=== PATIENT | male | born 1955 | race Caucasian/White ===

== ENCOUNTER 2018-11-16 11:24 | Inpatient (IN) | payer OTHER ==
[~2018-11-16] VITALS: Ht 180.3 cm; Wt 99.3 kg
[~2018-11-16 11:24] MED LIST: FISHOIL OR; FLOMAX PO; PERCOCET 5-3251 EACH PO; ZOFRAN ODT4 MG PO
[2018-11-16 11:35] VITALS: BP 138/70
[2018-11-16 12:11] LABS: ABSOLUTE NEUTROPHILS 1.8 thou/uL (1.4-8.2); EOSINOPHILS 4.5 % (0.0-3.0); HEMOGLOBIN 11.1 gm/dL (14.0-18.0); LYMPHOCYTES 48.5 % (24.0-44.0); MCH 28.4 pg (26.0-34.0); MCHC 32.6 g/dL (28.0-37.0); MCV 87.2 fL (80.0-100.0); MONOCYTES 7.4 % (1.0-8.0); POLYS 38.6 % (36.0-66.0); RDW 17.3 % (10.5-14.5); WBC 4.7 thou/uL (4.0-11.0)
[2018-11-16 12:20] LABS: URINE BILIRUBIN NEGATIVE (Negative); URINE BLOOD NEGATIVE (Negative); URINE CLARITY CLEAR; URINE COLOR YELLOW; URINE GLUCOSE-RANDOM* 3+ (Negative); URINE KETONES NEGATIVE (Negative); URINE LEUKOCYTES-REFLEX NEGATIVE (Negative); URINE NITRITE-REFLEX NEGATIVE (Negative); URINE PROTEIN (DIPSTICK) NEGATIVE (Negative); URINE UROBILINOGEN 0.2 E.U./dl (0.2-1.0)
[2018-11-16 12:33] LABS: ALBUMIN 3.7 g/dL (3.4-5.0); CREATININE 1.3 mg/dL (0.7-1.3); MAGNESIUM 1.8 mg/dL (1.8-2.4); POTASSIUM 4.3 mmol/L (3.5-5.1); TOTAL BILIRUBIN 0.3 mg/dL (<0.1-1.0); TOTAL PROTEIN 6.5 g/dL (6.4-8.2)
[2018-11-16 12:38] LABS: CALCIUM 14.2 mg/dL (8.5-10.1)
[2018-11-16 12:50] LABS: PLATELET COUNT 73 thou/uL (150-400)
--- NOTE | 2018-11-16 12:56 | EKG ---
[address] [address] ELECTROCARDIOGRAM REPORT Name: MASON ESCOBAR LATESHA Room #: [facility]..#: [id number] Admission: Attend Phys: Discharge: Date of : 57 Report #: [id number] THIS REPORT FOR: //name// [facility] ED Test Date: 2018-11-16 Test Time: 12:05:39 Pat Name: MASON ESCOBAR Department: Room: Gender: Welcome Wagon Host/Hostess: : 1955 Requested By: Blayne Hilton Order Number: [id number] MD: Kris Delgado Measurements Intervals [place] Rate: 86 P: 1 RI: 175 QRS: -3 QRSD: 94 T: 10 QT: 333 QTc: 399 Interpretive Statements Sinus rhythm Compared to ECG 10/26/2010 08:24:10 No significant changes Electronically Signed On 11-16-2018 12:55:34 CDT by Kris Delgado [email or web address] <ELECTRONICALLY SIGNED> By: Kris Delgado MD 11/16/18 1255 1205 1205 Kris Delgado MD /KAYCEE
[2018-11-16 14:00] LABS: CREATININE 1.1 mg/dL (0.7-1.3); PHOSPHORUS 2.5 mg/dL (2.5-4.9)
[2018-11-16 14:01] LABS: CALCIUM 12.7 mg/dL (8.5-10.1)
[2018-11-16 15:02] VITALS: BP 113/65
[2018-11-16 15:11] VITALS: BP 122/72
[2018-11-16 15:31] VITALS: BP 121/70
--- NOTE | 2018-11-16 18:23 | NUR ---
Patent admit to unit at 1545. A/O X4. DENIES ANY PAIN. AMBULATED IN ROOM. GENERLIZED WEAKNESS. WILL KEEP MONITOR.
[2018-11-16 19:43] VITALS: BP 130/65
--- NOTE | 2018-11-16 23:23 | NUR ---
PATIENTS CARES WERE ASSUMED AT SHIFT CHANGE. PATIENT WAS ASSESSED AND MEDS WERE PASSED. PATIENTS FAMILY AT THE BEDSIDE DURING REPORT. ALSO DOING FACE TIME WITH ONE OF THE SONS. ROOM WAS SET UP FOR THE TO SPEND THE NIGHT. HOURLY ROUNDING WAS DONE. THE BED IS IN A LOW AND OCKED POSITION.
[2018-11-17 03:55] VITALS: BP 115/52
[2018-11-17 06:16] LABS: PHOSPHORUS 1.4 mg/dL (2.5-4.9)
[2018-11-17 06:34] LABS: CALCIUM 7.4 mg/dL (8.5-10.1)
[2018-11-17 06:35] LABS: POTASSIUM 2.9 mmol/L (3.5-5.1)
[2018-11-17 08:00] VITALS: BP 120/54
--- NOTE | 2018-11-17 13:59 | NUR ---
ASSESSMENT: CM REVIEWED CHART AND MET WITH PT AT THE BEDSIDE. PTS IS AT THE BESIDE WELL CHILDREN. PT WAS ADMITTED FOR HYPERCALCEMIA. PT REPORTS THAT HE LIVES AT HOME WITH HIS AND CHILDREN IN A HOUSE. PT REPORTS HAVING NO STEPS TO ENTER. PT IS FULLY INDEPENDENT WITH ADLS AND AMBULATION. PT HAS A SHOWER CHAIR. PT HAS NOT HAD HH IN THE PAST OR BEEN TO A SNF. CM DISCUSSED ROLE. PT REPORTS HAVING NO INSURANCE. CM DISCUSSED REFERRAL WILL BE SENT TO [facility]. PT REPORTS HAVING NO NEEDS ONCE MEDICALLY STABLE TO DISCHARGE.
--- NOTE | 2018-11-17 15:19 | HC ---
[facility] [place] [address] CONSULTATION Name: MASON ESCOBAR Room #: 349-I [facility] IN ..#: [id number] Admission: 11/16/18 Attend Phys: Ravi Hernandez Discharge: Date of : 57 Report #: [id number] THIS REPORT FOR: //name// CC: Ravi Haile DATE OF SERVICE: 11/17/2018 CONSULTING PHYSICIAN: Dr. Hernandez. REASON FOR CONSULTATION: Hypercalcemia. HISTORY OF PRESENT ILLNESS: This is a 62-year-old male patient who presented yesterday following weeks of progressive weakness, tiredness, malaise, and poor concentration. On arrival to the ER, the patient was found to have severe hypercalcemia with his levels exceeding 40 mg/dL. He was subsequently admitted for further management and received aggressive IV fluid resuscitation as well as zoledronic acid. The patient notes that his appetite has declined over the past month and that he had lost more than 15 pounds unintentionally. However, he denies active GI symptoms of nausea, vomiting, constipation. He does recognize that his focus has been impaired with a foggy mentation over the past few weeks. Interestingly, the patient has had several episodes of kidney stones over his life, the last being a few years ago. He has not experienced pancreatitis in the past. The patient is now not aware of a prior history of calcium disorders or thyroid disorders. The patient has never been a smoker. REVIEW OF SYSTEMS: CONSTITUTIONAL: Fatigue, tiredness, weight loss, poor appetite, but no fever or chills. HEENT: Negative for sore throat, sinus pain, congestion, ear aches, or ear discharge. PULMONARY: Negative for shortness of breath, cough, or hemoptysis. CARDIAC: Negative for chest pain, palpitations, syncope, or presyncope. GASTROINTESTINAL: Negative for abdominal pain, nausea, vomiting, or changes in bowel movement frequency. NEUROLOGY: Negative for loss of consciousness, headaches, or seizure activity. SKIN: Negative for rash, ulceration, discoloration, or other major changes. PSYCHIATRY: Noted for somewhat declining mood quality, but not hallucinations or delusions. Otherwise, his review of systems is noncontributory other than those mentioned in HPI. PAST MEDICAL HISTORY: The patient notes that he was diagnosed in the past with diabetes mellitus and hypertension, but that he managed to get off medicines completely for both. [address] [address] CONSULTATION Name: MASON ESCOBAR LATESHA Room #: 349-I [facility] IN .R.#: [id number] Admission: 11/16/18 Attend Phys: Ravi Hernandez Discharge: Date of : 57 Report #: [id number] CURRENT MEDICATIONS: None. ALLERGIES: No known drug allergies. FAMILY HISTORY: Noncontributory. SOCIAL HISTORY: The patient is , has 4 children, has a part-time job. Denies smoking since age of 22 years, hardly drinks alcohol. PHYSICAL EXAMINATION: GENERAL: Pleasant, male patient, who appears somnolent, lethargic, but not in apparent distress. VITAL SIGNS: Blood pressure is 115/52 mmHg, heart rate is 108 beats per minute, respirations 20 per minute, temperature 37.5 degrees. CONSTITUTIONAL: He appears lethargic, somnolent, and actually dozed off a few times while we were speaking, but not in apparent distress. HEENT: Anicteric sclerae. Intact extraocular motions. NEUROLOGIC: Intact extraocular motions. NECK: Supple, without JVD, carotid bruits, or lymphadenopathy. I do not appreciate thyromegaly. CHEST: Clear to auscultation with good air entry bilaterally. No wheeze or crackles noted. There is no percussion noted over both lung lepe. HEART: Regular rate and rhythm without murmurs or gallops. ABDOMEN: Soft and lax, but with noted epigastric tenderness without guarding on deep palpation. No organomegaly. Sluggish bowel sounds. EXTREMITIES: Lower extremity exam, trace ankle edema bilaterally. Pedal pulses are appreciated. No skin breaks, ulcerations, or other deformities. NEUROLOGIC: Awake, arousable, somnolent, dozing off during our interview. The rest of his examination is nonfocal. PSYCHIATRIC: Seems to have a normal mood and normal affect. SKIN: No discoloration, ulceration, deformities or other gross abnormalities. LABORATORY DATA: Sodium 144, potassium 2.9, it was 4.3 on arrival, chloride 113, CO2 of 20, anion gap 11, BUN 14, creatinine 1.0, glucose 260, AST 15, lipase 405, calcium on arrival was 14.2 mg/dL. Total bilirubin 0.3, magnesium 1.8, alkaline phosphatase 268, ALT 35, total protein 6.5, albumin 3.7, GFR on arrival was 56. Calcium today is 7.4, phosphorus 1.4, magnesium 1.8, alkaline phosphatase 268, albumin 2.0. GFR now corrected to 76, free T4 1.1. White blood count 4.7, hemoglobin 11.1, hematocrit 34.0, platelets 73, calcium noted. TSH 0.014. ASSESSMENT AND PLAN: 1. Hypercalcemia. As noted above, the patient presented with an outlook of severe hypercalcemia that has been symptomatic over the past few weeks. This presented in the context of poor appetite and weight loss as well. [facility] [place] [address] CONSULTATION Name: MASON ESCOBAR Room #: 349-I ADM IN M.R.#: [id number] Admission: 11/16/18 Attend Phys: Ravi Hernandez Discharge: Date of : 57 Report #: [id number] patient's initial management was excellent in that he was aggressively hydrated, diuresed, and received zoledronic acid. The drop in his calcium levels overnight has been dramatic going from 14.2-7.4. While 7.4 mg/dL appears low, it is probably within normal limits when corrected for hypoalbuminemia. Given this dramatic and rapid drop in calcium in less than 24 hours, I would credit IV fluid resuscitation, mostly with this decline as zoledronic acid will typically take 2-3 days to manifest its activity. In this context, hypercalcemia of malignancy is the most pressing thought. Without a doubt, we still have to consider the possibility of hyperparathyroidism and a parathyroid level was ordered and is still pending. A neck ultrasound was done in search of a parathyroid adenoma and was unremarkable. Given the possibility of malignancy, I would order a PTH-related peptide and would highly encourage a low threshold for malignancy screener. In the immediate setting, I am certainly interested in finding out more about his liver in the setting of thrombocytopenia, hypoalbuminemia, and elevated alkaline phosphatase. In order to initiate this consideration, I might pursue a right upper quadrant ultrasound after I consult with Dr. Hernandez. In the immediate setting, IV fluids could certainly be toned down and the rest of the management will highly dependent on the outcome of his pending workup. 2. Hyperthyroidism. As noted above, the patient had a suppressed TSH, but with a perfectly normal free T4. This is consistent with an outlook of sick euthyroid syndrome, which further supports this outlook of chronic generalized illness over the past several weeks. No immediate action is warranted at this point in time. 3. Type 2 diabetes mellitus. The patient reports a history of type 2 diabetes mellitus that he perceives as diet control. However, he has not received any form of routine medical care and I would like to assess his diabetic state further with a hemoglobin A1c. 4. Hypokalemia. The patient's potassium dropped overnight with necessarily IV fluid resuscitation and diuresis and is being replaced now. I will request a potassium later today to ensure adequate correction. I certainly appreciate this consultation by Dr. Hernandez. <ELECTRONICALLY SIGNED> By: Amira Flores MD 11/17/18 1519 1142 1513 Amira Flores MD /nt
--- NOTE | 2018-11-17 15:31 | NUR ---
Assumed care approx. 0700 this AM. Patient noted to be much more weaker and somnolent than before. Patient made a fall risk later in the shift. Patient's updated at bedside with questions and concerns addressed. Patient's agrees that he isn't safe to be up on his own at this time as his current mentation, slow response, and fatigue is not the norm. Ultrasound of neck completed this AM with no significant findings. Ultrasound of abdomen scheduled for tomorrow morning. Patient will be NPO after midnight. Not much progress toward plan of care at this time.
[2018-11-17 15:40] VITALS: BP 109/58
[2018-11-17 17:35] LABS: CREATININE 1.6 mg/dL (0.7-1.3)
[2018-11-17 17:37] LABS: CALCIUM 10.7 mg/dL (8.5-10.1); POTASSIUM 3.9 mmol/L (3.5-5.1)
[2018-11-17 20:15] VITALS: BP 97/54
--- NOTE | 2018-11-18 02:37 | NUR ---
patient is alert and oriented. patient has hyperthyroidism. patient is nsr on tele. patients lbm was the 3rd. patient is achs. patient has been npo sense midnight for us today. patient was on room air. patient has had a low temp wcm. patient denies pain. patient is resting comfortably in bed. wcm. patient is progressing to goals.
[2018-11-18 03:26] VITALS: BP 100/58
[2018-11-18 04:24] LABS: ALBUMIN 2.8 g/dL (3.4-5.0); CALCIUM 9.3 mg/dL (8.5-10.1); CREATININE 1.5 mg/dL (0.7-1.3); POTASSIUM 3.5 mmol/L (3.5-5.1)
[2018-11-18 07:34] VITALS: BP 93/55
[2018-11-18] MEDS ORDERED: FLAGYL500 M1 PO (10:02)
[2018-11-18] MEDS ORDERED: LEVAQUIN 500 M500 M2 PO (10:02)
[2018-11-18 10:14] VITALS: BP 93/55
[2018-11-18 15:00] VITALS: BP 109/58
--- NOTE | 2018-11-18 17:16 | NUR ---
ASSUMED CARE OF PT AT 0700. PT AOX4 IN NO ACUTE DISTRESS. DISCHARGE PLANNING ON HOLD. PT NOW FEBRILE. TMAX 103.1. INFECTIOUS DISEASE CONSULTED - SEEING PATIENT NOW. CT CHEST RESULTS PENDING. GAIT WEAK. REQUIRING WALKER TO AMBULATE. WILL CONT TO MONITOR.
[2018-11-18 19:00] VITALS: BP 100/58
[2018-11-18 23:16] VITALS: BP 102/57
[2018-11-19 04:00] VITALS: BP 110/61
[2018-11-19 04:25] LABS: HEMATOCRIT 26.9 % (42.0-52.0); MCH 29.2 pg (26.0-34.0); MCHC 33.6 g/dL (28.0-37.0); MCV 86.8 fL (80.0-100.0); PLATELET COUNT 60 thou/uL (150-400); RDW 17.6 % (10.5-14.5); WBC 2.3 thou/uL (4.0-11.0)
[2018-11-19 04:47] LABS: ALBUMIN 2.6 g/dL (3.4-5.0); CALCIUM 8.6 mg/dL (8.5-10.1); CREATININE 1.4 mg/dL (0.7-1.3); POTASSIUM 3.2 mmol/L (3.5-5.1); TOTAL BILIRUBIN 0.7 mg/dL (<0.1-1.0); TOTAL PROTEIN 5.4 g/dL (6.4-8.2)
--- NOTE | 2018-11-19 05:24 | HC ---
[facility] [place] [address] CONSULTATION Name: MASON ESCOBAR Room #: 349-I ADM IN .R.#: [id number] Admission: 11/16/18 Attend Phys: Ravi Hernandez Discharge: Date of : 57 Report #: [id number] THIS REPORT FOR: //name// CC: Ravi Haile DATE OF SERVICE: 11/18/2018 ATTENDING PHYSICIAN: Dr. Hernandez. REASON FOR EVALUATION: Febrile illness. HISTORY OF PRESENT ILLNESS: Chart reviewed, the patient examined. This is a 62-year-old man with history of diabetes mellitus, renal lithiasis, who was admitted at the request of his primary care physician. He had presented there with a fairly profound weakness, unsteady gait and increased thirst. Screening lab suggested markedly elevated calcium of 14, normal albumin. He was asked to return to the Emergency Room where he subsequently admitted. He was given fluids and diuresis. In addition to that, he has had extended period where he has lost weight and becoming increasingly dyspneic with minimal activity. On evaluation, urinalysis was unremarkable for 3+ glucose described above the calcium was elevated at 14.2. Did have a lipase borderline elevated at 405, glucose of 297. CBC: White count of 4.7. CT abdomen and pelvis showed no acute intraabdominal or pelvic process. TSH was low at 0.014, parathyroid hormones pending. Thyroid ultrasound was otherwise unremarkable as well roughly 24-36 hours since his admission, had developed fevers which has been high-grade. On questioning, he denies any particular awareness of fevers prior to his admission, not have particularly specific exposure history, although he does have animals. He does work in the yard. No dietary indiscretion. No recent travel. Empirically placed on levofloxacin. ALLERGIES: None known. PHYSICAL EXAMINATION: GENERAL: Appears somewhat of a flat affect. He is little bit slow to respond, somewhat chronically ill-appearing and undernourished. VITAL SIGNS: Temperature 103.1, pulse 108, respirations 18, blood pressure 109/58. SKIN: Warm, dry, no rashes. HEENT: Normocephalic. Extraocular muscles are intact. NECK: Supple. LUNGS: Generally clear to auscultation. HEART: Regular, tachycardic. I do not appreciate a murmur. ABDOMEN: Mild discomfort in the periumbilical area. There are no overt peritoneal signs. EXTREMITIES: Distal lower extremities are otherwise unremarkable. [facility] [address] [place] [address] CONSULTATION Name: MASON ESCOBAR Room #: 349-I ADM IN ..#: [id number] Admission: 11/16/18 Attend Phys: Ravi Hernandez Discharge: Date of : 57 Report #: [id number] GENITOURINARY: Deferred. RECTAL: Deferred. LABORATORY DATA: CT of the chest, there is no adenopathy, 4 mm right middle lobe nodule. Abdominal ultrasound showed gallbladder wall and borderline prominence, some probe tenderness over the gallbladder. No findings of cholecystitis. Blood cultures collected on 11/17/2018 are sterile thus far. Initial electrolytes, sodium 136, potassium 4.3, chloride 99, bicarbonate is 30, anion gap of 7, BUN and creatinine 18 and 1.3, total bilirubin of 0.3, calcium 14.2, albumin 3.7, total protein 6.5. CBC: White count of 4.7, H and H 11.1 and 34.0, platelets of 73. ASSESSMENT AND PLAN: Noted some degree of fever prior to 48-hour mariia. Blood cultures are sterile thus far. He has been started empirically on antimicrobials. I think it is reasonable to put him on doxycycline as well. The hypercalcemia and fevers are either due endocrinopathy or perhaps malignancy. We will check some viral studies and there are no focal site to suggest a pyogenic cause of infection, may need to do some serology and see how he does over the course of next 24-48 hours. Clearly, this is not something that is going to resolve hypercalcemia on its own. Discussed in detail with the patient. <ELECTRONICALLY SIGNED> By: Cl Parikh MD 11/19/18 0524 1732 [id number] Cl Parikh MD /nt
[2018-11-19 05:59] LABS: ABSOLUTE NEUTROPHILS 1.3 thou/uL (1.4-8.2); PLATELET ESTIMATE DECREASED
[2018-11-19 06:00] LABS: ANISOCYTOSIS 1+; LARGE PLATELETS FEW
--- NOTE | 2018-11-19 06:26 | NUR ---
pt has had fever tonight. T max was 101.3, tylenol effecitve for control of fever. continues to feel weak and malaise. he is wanting to know where his source of infection is at. resting quietly tonight. careplan reviewed.
[2018-11-19 07:52] VITALS: BP 103/60
[2018-11-19 10:06] LABS: % SATURATION 23 % (20-39); IRON 51 ug/dL (65-175); TIBC 223 ug/dL (250-450)
[2018-11-19 15:50] LABS: OBSERVED RETIC COUNT 0.88 % (0.6-2.6)
[2018-11-19 16:01] VITALS: BP 107/55
--- NOTE | 2018-11-19 18:40 | NUR ---
PT UP TO BATHROOM AND WALKED AROUND THE UNIT WITH WALKER. PT STATES HE FEELS BETTER THAN YESTERDAY. VSS ALL DAY. PIV CHANGED D/T LEAKING.
[2018-11-19 19:07] VITALS: BP 109/53
[2018-11-20 03:20] VITALS: BP 112/50
[2018-11-20 05:12] LABS: HEMATOCRIT 25.4 % (42.0-52.0); HEMOGLOBIN 8.6 gm/dL (14.0-18.0); MCH 29.6 pg (26.0-34.0); MCHC 33.9 g/dL (28.0-37.0); MCV 87.3 fL (80.0-100.0); PLATELET COUNT 58 thou/uL (150-400); RBC 2.91 mil/uL (4.50-6.00); RDW 17.2 % (10.5-14.5)
[2018-11-20 05:32] LABS: ALBUMIN 2.5 g/dL (3.4-5.0); CALCIUM 8.3 mg/dL (8.5-10.1); CREATININE 1.2 mg/dL (0.7-1.3); TOTAL BILIRUBIN 0.6 mg/dL (<0.1-1.0); TOTAL PROTEIN 5.3 g/dL (6.4-8.2)
[2018-11-20 07:50] VITALS: BP 123/59
[2018-11-20 08:27] LABS: APTT 25.9 Seconds (24.5-32.8); PROTIME 10.9 Seconds (9.3-11.4)
[2018-11-20 08:46] LABS: ABSOLUTE NEUTROPHILS 0.8 thou/uL (1.4-8.2); ANISOCYTOSIS 1+; HYPOCHROMASIA SLIGHT; PLATELET ESTIMATE DECREASED
[2018-11-20] MEDS ORDERED: DOXYCYCLINE 10100 MG PO (09:16)
--- NOTE | 2018-11-20 09:25 | NUR ---
PT TO IR FOR BONE MARROW BIOPSY AND ASPIRATION.
[2018-11-20 13:46] LABS: KAPPA FREE LIGHT CHAINS 125.7 mg/L (3.3-19.4); KAPPA/LAMBDA RATIO 46.56 (0.26-1.65); LAMBDA FREE LIGHT CHAINS 2.7 mg/L (5.7-26.3)
--- NOTE | 2018-11-20 13:53 | NUR ---
ON-GOING ASSESSMENT: CM SPOKE WITH ATTENDING. PLANS ARE FOR PATIENT TO LIKELY DISCHARGE HOME AFTER BONE MARROW BIOPSY TODAY. PT HAS NO INSURANCE. CM ALREADY PREVIOUSLY GAVE PT SAFETY NET CLINIC RESOURCES/FIND A PHYSICIAN FORM. REFERRAL HAS ALSO BEEN SENT TO [facility] AND CM PROVIDED PATIENTS WITH [facility] CONTACT #.
[2018-11-20 15:35] VITALS: BP 111/66
[2018-11-20 17:07] LABS: HAPTOGLOBIN 197 mg/dL (34-200); IgA 13 mg/dL (61-437); IgG 159 mg/dL (700-1600); IgM 7 mg/dL (20-172)
[2018-11-20 17:07] LABS: GLOBULIN TOTAL 2.2 g/dL (2.2-3.9); M-SPIKE Not Observed g/dL (Not Observed)
[2018-11-20 17:13] VITALS: BP 93/55
[2018-11-21 11:07] LABS: HEMATOLOGY COMMENTS Note: (()); HEMOGLOBIN 9.1 g/dL (13.0-17.7)
[2018-11-24 13:23] LABS: T-SPOT.TB Negative
[2018-11-25 22:06] LABS: ADENOVIRUS Negative (Negative); INFLUENZA A Negative (Negative); INFLUENZA B Negative (Negative); METAPNEUMOVIRUS Negative (Negative); PARAINFLUENZA 1 Negative (Negative); PARAINFLUENZA 2 Negative (Negative); PARAINFLUENZA 3 Negative (Negative); RHINOVIRUS Negative (Negative); RSV A Negative (Negative); RSV B Negative (Negative)
--- NOTE | 2018-11-30 17:06 | PATH ---
[facility] [place] [address] PATHOLOGY RPT PROCEDURE Name: MASON DWYER Room #: 349-I [facility] IN M.R.#: [id number] Admission: 11/16/18 Date of : 57 Discharge: 11/20/18 Report #: [id number] Path Case #: [id number] [facility] Accession Number: [id number] . 01 Material submitted: . PART A: bone - BONE MARROW BIOPSY PART B: bone - BONE MARROW CLOT PART C: bone - BONE MARROW ASPIRATE SLIDES PART D: bone - PERIPHERAL BLOOD SMEARS PART E: bone - BONE MARROW FLOW . 01 Clinical history: . Pancytopenia, weakness . This is a 62-year-old man with pancytopenia. . 02 Diagnosis: Bone marrow aspirate, biopsy, cell clot and peripheral blood: - Peripheral blood with pancytopenia including moderate to severe normocytic anemia, moderate leukopenia and moderate to severe thrombocytopenia. 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 (SEE COMMENT). . (CLW:tori; 11/23/2018) . . . . . Special studies report received from [facility], [address], [address], [place], [address], on case [id number], labeled with their number [id number], dated 11/22/2018. . Flow Cytometry: Hematologic Neoplasia Assessment . Clinical History Pancytopenia and hypercalcemia . Indication for Study Evaluation for pancytopenia . Specimen Bone Marrow Aspirate . Viability 73% (7AAD exclusion) [address] [address] PATHOLOGY RPT PROCEDURE Name: MASON DWYER LATESHA Room #: 349-I [facility] IN [facility].#: [id number] Admission: 11/16/18 Date of : 57 Discharge: 11/20/18 Report #: [id number] Path Case #: [id number] . Interpretation Bone Marrow Aspirate: Abnormal/monotypic plasma cell population (11% of sample), consistent with a plasma cell neoplastic process . Comments Plasma cells are typically underrepresented by flow cytometry. Correlation with all available clinical, laboratory, and morphologic data is recommended. If needed, FISH testing (myeloma panel, plasma cell enrichment) is available. . Populations Analyzed Myeloid Blasts: 0.3% No significant immunophenotypic abnormalities Lymphocytes: 29% B-cells: 1.5%, polytypic/polyclonal sIg light chain pattern T-cells: no significant abnormalities of the markers tested CD4+ T-cells: 16.5% (including 0.7% CD57+ cells) CD8+ T-cells: 8.7% (including 3.7% CD57+ cells) CD4:CD8: 1.9 NK cells: 3.0% Neutrophilic Cells: 48% No abnormal myeloid maturation or increase in [id number] blasts is seen. There is upregulation of CD10, CD11b and CD16 expression by myeloid cells which is consistent with hemodilution effect and/or right shift in myeloid maturation. Monocytic Cells: 2% No significant abnormalities of the markers tested Eosinophils: 8% No relative increase Basophils: 0.6% No relative increase Plasma Cells: 11% Abnormal plasma cells, 11% of sample, CD45-/+, CD19-, CD20-, CD38+ (bright), CD56+, CD117-, CD138+, HLA DR-, cIg kappa+ Hematogones: 0.0% Normal B-cell precursors Remaining CD45 1% No significant reactivity with the markers Negative Events/ tested (may represent unlysed red blood cells, Debris: erythroid precursors, platelets, debris, etc.) (erythroid precursors may be underrepresented due to sample lysis/processing) . Morphologic Evaluation A slide was reviewed for advanced quality engineer purposes only. . Specimen Description Total Cell Yield: 1.24X10 and [address] [address] PATHOLOGY RPT PROCEDURE Name: LUZMASON LEE Room #: 349-I [facility] IN M.R.#: [id number] Admission: 11/16/18 Date of : 57 Discharge: 11/20/18 Report #: [id number] Path Case #: [id number] Reagent(s) Used CD2, CD3, CD4, CD5, CD7, CD8, CD10, CD11b, CD13, CD14, CD16, CD19, CD20, CD33, CD34, CD38, CD45, CD56, CD57, CD64, CD117, HLA-DR, kappa, lambda, CD138, CytoKappa, CytoLambda . at [employer]. Marco Skinner MD Hematopathologist . . Intended Use Flow cytometry is optimally used to immunophenotypically characterize abnormal populations when they are detected. Negative flow cytometry results do not exclude lymphoma or neoplasia. Possible false negative flow cytometry results may occur in, but are not limited to, the following: neoplastic cells in Hodgkin lymphoma are not typically adequately represented by routine clinical flow cytometry; neoplastic cells may be lost or inadequately represented due to degeneration, sample processing, sampling artifact, or patchy involvement; plasma cells are typically underrepresented by flow cytometry; immature cells/blasts may be underrepresented due to hemodilution; myeloproliferative disorders and low grade myelodysplasia may not have immunophenotypic abnormalities or increased blasts. Correlation with all available clinical, laboratory, and morphologic data is always necessary to assess for the possibility of false negative flow cytometry results and to establish a diagnosis. Each marker in this analysis was used to assess for potential antigenic abnormalities or to evaluate detected abnormalities. . Disclaimer(s) This test was performed at [employer]. at [address] [place] [address], [phone] - [employer]: Glenn Fan MD. [employer] is a business unit of [employer] a wholly-owned subsidiary of [employer]. . Any image or images that accompany this report are volunteer patient representative images only and should not be used to render a diagnosis. . This test was developed and its performance characteristics determined by [employer]. It has not been cleared or approved by the Food and Drug Administration (FDA). The FDA has determined that such clearance or approval is not necessary. . For inquiries, the physician may contact Lab: [phone] . A complete copy of the report is on file. [address] [address] PATHOLOGY RPT PROCEDURE Name: MASON DWYER Room #: 349-I [facility] IN M.R.#: [id number] Admission: 11/16/18 Date of : 57 Discharge: 11/20/18 Report #: [id number] Path Case #: [id number] . Professional services performed by [facility]. at [address], [place] [address]. Technical services performed by [employer] at [address], [place] [address]. . (CLW:jason 11/24/2018) . [facility] 11/24/2018 0928 Local . 02 Comment: Overall, the bone marrow is hypercellular for the patient's age with diffuse interstitial involvement by a plasma cell neoplasm. It is the small cell variant with lymphoid morphology. Correlation with clinical history, additional laboratory data and radiographic findings is required to determine the extent of the disease process. The Cyclin D1 staining likely corresponds to a t(11;14) translocation frequently associated with the small cell variant of plasma cell myeloma. Oil And Gas Superintendent slides are co-reviewed with Dr. Elicia Avalos. The case is discussed with Dr. Didier Becerra on 11/23/2018 at 3:00 PM. . (CLW:toddl; 11/23/2018) . 02 Addendum: . Special studies report received from [facility], [address] [place] [address], [address], [place], [address], on case [id number], labeled with their number [id number], dated 11/30/2018. . Cytogenetic Analysis Report . RESULT: Normal Male Karyotype 46,XY(20) . Specimen Type: Bone Marrow . Indication for Study: Pancytopenia . INTERPRETATION: Cytogenetic analysis revealed no evidence of an acquired clonal abnormality. These findings should be interpreted in the context of clinical and other pathologic findings. . Number of Metaphases Counted: 20 Banding: G-banding Number of Metaphase Cells Analyzed: 20 Band Level: 350 Number of Metaphase Cells Karyotyped: 2 Cultures Established: 24/48 hour unstimulated . [address] [address] PATHOLOGY RPT PROCEDURE Name: LUZMASON LATESHA Room #: 349-I [facility] IN M.R.#: [id number] Admission: 11/16/18 Date of : 57 Discharge: 11/20/18 Report #: [id number] Path Case #: [id number] . at [employer]. Kt Gonzalez M.D., JESSIE Director of Cytogenetics . Disclaimer [employer] is a business unit of [employer] a wholly-owned subsidiary of [employer]. . Professional Component performed by [address] [place] [address] [address], [place], [address] Technical Component performed at [address] [place] [address], [address] . . Any image(s) that accompany this report is/are a volunteer patient representative image(s) only and should not be used to render a diagnosis. . Based on the resolution of this study, standard cytogenetic methodology does not routinely detect subtle or sub-microscopic rearrangements or low level mosaicism. . A complete copy of the report is on file. . Professional services performed by [facility]. at [address], [place] [address], [place] [address]. Technical services performed by [employer]. at [facility], [place] [address], [place] [address]. . (CLW:ambela 11/30/2018) . . [place]/11/30/2018 Addendum Electronically Signed by Sonja Mcmillan MD, Pathologist . 02 Electronically signed: . Sonja Mcmillan MD, Pathologist NPI- [id number] . 01 Gross description: . A. The specimen is received in formalin, labeled "Mason Dwyer BM biopsy", is a cylindrical segment of sharma-brown bone measuring 1.5 cm in length and with an average 0.1 cm diameter. The specimen is entirely submitted in A1 after decalcification. . B. The specimen is received in formalin, labeled "Mason Dwyer, clot ([facility] [address] [place] [address] PATHOLOGY RPT PROCEDURE Name: MASON DWYER Room #: 349-I [facility] IN M.R.#: [id number] Admission: 11/16/18 Date of : 57 Discharge: 11/20/18 Report #: [id number] Path Case #: [id number] asp)", consist of sharma-brown clot measuring 1.8 x 1.8 x 0.3 cm. The specimen is entirely submitted in B1. ([facility]; 11/20/2018) [facility] 11/23/2018 1534 Local . 02 Microscopic: . CBC Data (11/20/18): WBC 2,000/uL, RBC 2.91, hemoglobin 8.6 g/dL, hematocrit 25.4%, MCV 87.3 fL, MCH 29.6 pg, MCHC 33.9 g/dL, RDW 17.2%, and platelet count 58,000/uL. Manual white blood cell differential: segs 36%, bands 4%, lymphs 44%, monos 4%, eos 9%, and basos 3%. . Peripheral Blood Smear: Cytomorphological examination of the Sterling's stained peripheral blood smear confirms the provided data. Red blood cells show moderate to severe normocytic anemia with mild anisocytosis. White blood cells are decreased in number. They are predominantly granulocytes and lymphocytes. Granulocytes are predominantly segmented neutrophils and are without significant dyspoiesis or significant left shift. Lymphocytes are predominantly small, round, and mature appearing with condensed chromatin and scant cytoplasm with admixed large granular lymphocytes. On scanning, no plasma cells are seen. Monocytes are mature. Platelets are moderate to markedly decreased in number and mainly normal in morphology with rare larger platelets noted. . Aspirate Smears: Cytomorphological examination of the Sterling's stained aspirate smears shows spicules present. The overall cellularity is 95 to 100%. There is an atypical lymphoid appearing infiltrate. Apart from the lymphoid appearing cells, the myeloid to erythroid ratio is 4:1. Myeloid and erythroid maturation are unable to be accurately evaluated. In a 500 cell differential, there are less than 1% blasts (no Mayte rods are seen), 12% more differentiated myeloids, 3% erythroid precursors, 84% lymphoid appearing cells and 1% plasma cells. Megakaryocytes are proportional in number and both normal and abnormal in morphology. The lymphoid appearing cells are predominantly small round and mature appearing with condensed chromatin and scant cytoplasm with focal plasmacytoid features. Iron stain of the aspirate smear shows 0/4+ iron positivity with spicules present. No ringed sideroblasts are identified. . Core Biopsy and Cell Clot: The decalcified bone marrow core biopsy is adequate. The bone marrow is hypercellular with an overall cellularity of 95%. There is an atypical lymphoid appearing infiltrate diffusely throughout the interstitium. Background trilineage hematopoiesis is markedly reduced. Scattered normal and abnormal megakaryocytes are noted. The lymphoid appearing cells are small round and mature appearing with condensed chromatin and scant cytoplasm with focal plasmacytoid features. Bony trabeculae and blood vessels are unremarkable. The cell clot has occasional spicules present [address] [address] PATHOLOGY RPT PROCEDURE Name: MASON DWYER LATESHA Room #: 349I [facility] IN .R.#: [id number] Admission: 11/16/18 Date of : 57 Discharge: 11/20/18 Report #: [id number] Path Case #: [id number] that are similar in cellularity and differential morphology as previously described. . Properly-controlled special stains are performed. . Block A1 Iron: 2/4+ iron positivity Reticulin: Mild to moderate reticulin fibrosis within the lymphoid-appearing infiltrate . Block B1 Iron: 1/4+ iron positivity with spicules present . To confirm the flow cytometry findings, further evaluate and quantify the plasma cell population and to identify cells in a tissue architectural context, properly-controlled immunohistochemical stains are performed: . Block A1: CD20: Tumor cells are non-reactive; PAX-5: Tumor cells are reactive; CD3: Highlights admixed T-cells; CD5: Highlights admixed T-cells, no co-expression with PAX-5; CD10: Tumor cells non-reactive; BCL-6: Tumor cells non-reactive; BCL-2: Tumor cells reactive; CD23: Scattered positive cells; Cyclin D1: Tumor cells reactive; MUM1: Tumor cells reactive, comprising 80-90% of the marrow cellularity; CD138: Tumor cells focally reactive; [place] and lambda in situ hybridization: Tumor cells are kappa restricted. . Block B1: CD20: Tumor cells non-reactive; PAX-5: Tumor cells reactive; CD3: Highlights admixed T-cells; CD5: Highlights admixed T-cells, no co-expression with PAX-5 or MUM1; CD10: Tumor cells non-reactive; BCL-6: Tumor cells non-reactive; BCL-2: Tumor cells reactive; CD23: Stains scattered cells; Cyclin D1: Tumor cells reactive; MUM1: Tumor cells reactive, comprising 80-90% of the marrow cellularity; CD138: Tumor cells focally reactive; [place] and lambda in situ hybridization: Tumor cells are kappa-restricted. . Flow Cytometry: Flow cytometric immunophenotypic analysis was performed at [facility]. The diagnosis is "abnormal/monotypic plasma cell population [address] [address] PATHOLOGY RPT PROCEDURE Name: LUZMASON LEE Room #: 349-I [facility] IN ..#: [id number] Admission: 11/16/18 Date of : 57 Discharge: 11/20/18 Report #: [id number] Path Case #: [id number] (11% of sample), consistent with a plasma cell neoplastic process." There are 0.3% myeloid blasts. There are 29% lymphocytes. Of the lymphocytes, there are 1.5% polyclonal B-cells. T-cells have a CD4/CD8 ratio of 1.9 and no aberrant T-cell antigen expression. There are 11% abnormal plasma cells that are characterized as CD45 negative/positive, CD19 negative, CD20 negative, CD38 positive (bright), CD56 positive, CD117 negative, CD138 positive, HLA-DR negative and cyto kappa positive. Please see separate flow cytometry report from [facility] ([id number]). . Cytogenetics Analysis: Cytogenetic chromosomal analysis is pending at [facility] ([id number]). . (CLW:tori; 11/23/2018) . 02 Pathologist provided ICD-10: D61.818, D64.9, D72.819, D69.6, D47.Z9 . 02 CPT . 962987, 065971, 125483, 587380, 636530, 709392, 162680, 380786, 199349, K30563, Q88251, X41249, Q40034 Specimen Comment: A courtesy copy of this report has been sent to Specimen Comment: [phone], , , . Specimen Comment: Report sent to ,DR NOYOLA,DR RAMIREZ / DR BECERRA Performed at: 01 [facility] [address] [facility] [address], [place] [id number] MD Trevon Capone MD Phone: [phone] Performed at: 02 [facility] [address] [id number] MD Andrey Heaton MD Phone: [phone]
== END 2018-11-20 18:20 | disposition home or self-care (01) | DRG 641 ==
LOC: ER 11:24 → EROBS 14:43 → 3W 14:43
PROVIDERS: Emergency Medicine; Internal Medicine; Internal Medicine Hematology & Oncology; Radiology Vascular & Interventional Radiology; Specialist; ADMIT Hospitalist
DX: E83.52 Hypercalcemia (principal); D61.818 Other pancytopenia; E46 Unspecified protein-calorie malnutrition; E05.90 Thyrotoxicosis, unspecified without thyrotoxic crisis or storm; E87.6 Hypokalemia; E11.9 Type 2 diabetes mellitus without complications; E07.81 Sick-euthyroid syndrome; R91.1 Solitary pulmonary nodule; I10 Essential (primary) hypertension; D69.6 Thrombocytopenia, unspecified; Z68.30 Body mass index [BMI] 30.0-30.9, adult; Z87.442 Personal history of urinary calculi; Z87.891 Personal history of nicotine dependence; Z79.899 Other long term (current) drug therapy; Z80.8 Family history of malignant neoplasm of other organs or systems; Z28.21 Immunization not carried out because of patient refusal
CPT/HCPCS: 10879